=== PATIENT | female | born 1980 | race Asian ===

== ENCOUNTER 2020-06-11 10:31 | Outpatient (CLI) | payer OTHER, SELFPAY ==
--- NOTE | ~2020-06-11 | US_ITS ---
EXAMINATION: US pelvic complete w TV DATE: 06/11/2020 11:10 INDICATION: Pelvic pain TECHNIQUE: Multiple transabdominal and endovaginal sonographic images of the pelvis were obtained. COMPARISON: None. FINDINGS: The uterus measures 10.5 x 4.6 x 4.5 cm. A 1.9 x 1.6 x 1.7 cm isoechoic intramural fibroid is seen in the anterior uterine body. The endometrial complex measures 5 mm. The ovaries are not visu alized however no adnexal abnormality is seen. There is no free fluid in the pelvis. IMPRESSION: 1. No sonographic correlate for the patient's symptoms. Reviewed, dictated and finalized at location A.
== END 2020-06-11 10:32 | disposition home or self-care (01) ==
PROVIDERS: Visit Provider Obstetrics & Gynecology
DX: R10.2 Pelvic and perineal pain (principal)
CPT/HCPCS: 76830; 76856

== ENCOUNTER 2020-06-27 07:50 | Outpatient (CLI) | payer OTHER, SELFPAY ==
--- NOTE | ~2020-06-27 | MM_ITS ---
EXAMINATION: MM screening [place] BI w [facility] HISTORY: Screening mammogram TECHNIQUE: Craniocaudal and mediolateral oblique 3-D tomosynthesis images were obtained and synthetic 2-D images were generated. CAD analysis was submitted and interpreted. COMPARISON: No prior mammogram is available for comparison at this institution. BREAST PARENCHYMAL COMPOSITION: There are scattered areas of fibroglandular density. FINDINGS: There is no evidence of suspicious mass, calcification, or architectural distortion to sugg est malignancy in either breast. IMPRESSION: 1. No mammographic evidence of malignancy. 2. Recommend routine screening mammography in one year. BI-RADS Category 1: Negative Reviewed, dictated and finalized at location A.
== END 2020-06-27 07:51 | disposition home or self-care (01) ==
LOC: ANHIMG 07:52
PROVIDERS: PCP Family Medicine; Visit Provider Obstetrics & Gynecology
DX: Z12.31 Encounter for screening mammogram for malignant neoplasm of breast (principal)
CPT/HCPCS: 77063; 77067

== ENCOUNTER 2020-08-11 08:53 | Day surgery (SDC) | payer OTHER, SELFPAY ==
[2020-08-11] VITALS (10 sets, daily range): BP systolic 114–148; BP diastolic 66–91; PULSE 60–90; RESP 14–20; TEMP 36.1–36.9; O2SAT 96–100
--- NOTE | ~2020-08-11 | US_ITS ---
EXAMINATION: US abdomen limited DATE: 08/11/2020 12:02 INDICATION: Right upper quadrant pain TECHNIQUE: Multiple grayscale and Doppler ultrasound images of the abdomen were obtained. COMPARISON: None available FINDINGS: The head, body, and tail of the pancreas are normal. The liver is normal with normal echoge nicity and echotexture. No surface nodularity. Normal hepatopetal flow in the main portal vein. Stone s are present in the gallbladder. There is no definite bladder wall thickening or pericholecystic flu id. Stones are mobile and are demonstrated to migrate in and out of the gallbladder neck. The normal common bile duct measures 2 mm. There was no sonographic Solorzano sign. IMPRESSION: 1. Cholelithiasis with mobile stones migrating into and out of the gallbladder neck. No additional so nographic findings of cholecystitis. Reviewed, dictated and finalized at location A. MOFORMING MACHINE OPERATOR IMPRESSION: 1. Cholelithiasis with mobile stones migrating into and out of the gallbladder neck. No additional sonographic findings of cholecystitis.
--- NOTE | ~2020-08-11 | CT_ITS ---
EXAMINATION: CT abdomen pelvis w con INDICATION: Right upper quadrant pain TECHNIQUE: Computed tomographic images of the abdomen and pelvis were obtained after the administrati on of 100 cc of Omnipaque 350 intravenous contrast. The dose-length product (DLP) was 773.83 mGy-cm. Automated exposure control and iterative reconstruction technique were employed. COMPARISON: None available FINDINGS: The lung bases are clear. The heart size is normal. Stones are present in the gallbladder. There is no definite gallbladder wall thickening or pericholecystic fluid. The liver, spleen, pancrea s, and adrenal glands are normal. The kidneys are unremarkable. No pathologically enlarged abdominal or pelvic lymph nodes are identified. There is no free intraperitoneal gas or evidence of bowel obstr uction. The appendix is normal. IMPRESSION: 1. Cholelithiasis without definite additional findings of cholecystitis. Consider right upper quadran t ultrasound. Reviewed, dictated and finalized at location A. EF PHARMACIST IMPRESSION: 1. Cholelithiasis without definite additional findings of cholecystitis. Consid er right upper quadrant ultrasound.
[2020-08-11 09:19] LABS: Basophils Percent Auto 0.1 % (0.2-1.2); Eosinophils Absolute Auto 0.7 K/mm3 (0-0.3); Eosinophils Percent Auto 4.5 % (0-4.4); Hematocrit 44.9 % (37.0-47.0); Immature Granulocyte Absolute 0.06 K/mm3 (0.00-0.031); Immature Granulocyte Percent A 0.4 % (0-0.5); Lymphocytes Absolute Auto 1.94 K/mm3 (0.9-3.2); Lymphocytes Percent Auto 13.5 % (18.3-44.2); Mean Corpuscular HGB Conc 33.4 g/dl (32-36); Mean Corpuscular Hemoglobin 31.6 pg (26-34); Mean Corpuscular Volume 94.5 fl (80-100); Mean Platelet Volume 10.9 fl (7.4-10.4); Monocytes Absolute Auto 0.9 K/mm3 (0.1-0.6); Monocytes Percent Auto 5.9 % (2.6-8.5); Neutrophils Absolute Auto 10.9 K/mm3 (1.3-6.7); Neutrophils Percent Auto 75.6 % (45.5-73.1); Platelet Count Result 223 k/mm3 (150-375); Red Blood Count 4.75 M/mm3 (4.2-5.4); Red Cell Distribution Width 12.3 % (11.5-14.5); White Blood Count 14.4 K/mm3 (4.5-10.0)
[2020-08-11 09:25] LABS: Add Urine Microscopic? YES; Appearance Urine Cloudy (Clear); Bacteria Urine 1+ /hpf; Bilirubin Urine Negative (Negative); Blood Urine 3+ (Negative); Color Urine Yellow (Yellow); Glucose Urine UA Negative (Negative); Ketones Urine Trace mg/dL (Negative); Leukocyte Esterase Ur Negative LEU/UL (Negative); Mucus Urine Heavy /lpf; Nitrate Urine Positive (Negative); Protein Urine 2+ mg/dL (Negative); Squamous Epithelial Cell Urine Many /hpf (Few); Urobilinogen Urine Negative mg/dL (<2.0)
[2020-08-11 09:32] LABS: Alanine Aminotransferase 33 U/L (4-35); Alkaline Phosphatase 66 U/L (38-126); Anion Gap 14 mmol/L (8-16); Aspartate Amino Transferase 31 U/L (14-36); Bilirubin,Total 0.8 mg/dL (0.2-1.3); Blood Urea Nitrogen 14 mg/dL (7-17); Calcium 9.2 mg/dL (8.4-10.2); Carbon Dioxide 23 mmol/L (22-30); Chloride 103 mmol/L (98-107); Estimated Glomerular Filt Rate > 60; Glucose 103 mg/dL (65-105); Lipase 41 U/L (23-300); Potassium 3.9 mmol/L (3.4-5.0); Sodium 140 mmol/L (137-145)
--- NOTE | 2020-08-11 09:41 | ED.ABDPAIN ---
HPI - Abdominal Pain General Chief Complaint: Abdominal Pain Stated Complaint: really bad stomach pains last night Time Seen by Provider: 08/11/20 09:39 Source: patient Limitations: no limitations History of Present Illness HPI narrative: 39 years old female presents with right upper quadrant pain associated with nausea, vomiting and diarrhea started yesterday around noon. Patient denies any fever, chills, chest pain, shortness of breath, back pain, urinary symptoms. Patient also telling me that her symptoms are improving. Patient had intermittent right upper quadrant pain for years. History of hypertension and dysfunctional uterine bleeding. Patient does not smoke or drink or uses drugs. Related Data Allergies Allergy/AdvReac Type Severity Reaction Status Date / Time nifedipine Allergy Unknown Rash Verified 08/11/20 10:07 Review of Systems Review of Systems: Narrative: CONSTITUTIONAL: Denies fever, chills, or sweats. EYES: Denies visual changes, redness, or discharge. ENT: Denies rhinorrhea, congestion, sore throat, or otalgia. CARDIOVASCULAR: Denies chest pain, palpitations, or edema. RESPIRATORY: Denies cough or dyspnea. GASTROINTESTINAL: Right upper quadrant pain with nausea, vomiting and diarrhea GENITOURINARY: Denies dysuria or hematuria. SKIN: Denies rash or itching. MUSCULOSKELETAL: Denies back pain, joint pain, or myalgia. NEUROLOGIC: Denies headache, numbness, or weakness. PSYCHIATRIC: Denies anxiety or depression. PMFSH Past Medical History Medical History History of hypertension Surgical History Surgical History H/O laparoscopy Social History Social History Smoking status: Never smoker Gender identity (if verbalized by the patient): Female Exam Narrative: Exam Narrative: General appearance: Well-developed, well-nourished Skin: Normal color Head: Normocephalic, nontraumatic Eyes: Clear conjunctiva ENT: Oropharynx normal, ears normal, nose normal Neck: Supple, nontender Chest and respiratory: Airway patent, no respiratory distress, no accessory muscle use Heart: Regular rate/rhythm Abdomen: Soft, nontender, no organomegaly, quiet bowel sounds Vascular: Normal peripheral pulses, normal capillary refill. Musculoskeletal: Normal range of motion, nontender back Neurologic: Alert and oriented ?3, CRANE ENGINEER is normal as tested, no gross motor deficit Course Course Emergency Course: Improving Consultations Consultation #1: Dr. Bustamante Gallbladder need to be removed. Patient can be admitted today or follow-up as outpatient. Patient agreed to stay for cholecystectomy Date: 08/11/20 Time: 12:31 Vital Signs Vital signs: Vital Signs Temperature 36.1 C L 08/11/20 09:29 Pulse Rate 82 08/11/20 09:29 Respiratory Rate 18 08/11/20 09:29 Blood Pressure 148/91 H 08/11/20 09:29 Pulse Oximetry 96 08/11/20 09:29 Temperature 36.1 C L 08/11/20 09:29 Pulse Rate 82 08/11/20 09:29 Respiratory Rate 18 08/11/20 09:29 Blood Pressure 148/91 H 08/11/20 09:29 Pulse Oximetry 96 08/11/20 09:29 MDM - Abdominal Pain MDM Narrative Medical decision making narrative: Patient presents with right upper quadrant pain which been going for years. Cholelithiasis, cholecystitis are my concern. Labs, urine analysis, CT abdomen pelvis with IV contrast, IV fluids, IV morphine and Zofran ordered. Blood work-up showed normal liver enzymes, normal bilirubin. CT scan of the abdomen and pelvis showed no significant finding of emboli cholecystitis Gallbladder ultrasound showed a g
[2020-08-11] MEDS: ONDANSETRON INJ 4 MG/2 ML VIAL IV PUSH (10:06)
[2020-08-11] MEDS: SODIUM CHLORIDE 0.9% IV 1,000 ML 999 ML IV CONT (10:06)
--- NOTE | 2020-08-11 12:58 | WPDANESEPPF ---
Anes - Initial Pre Proc Eval Procedure: Operation Date: 08/11/20 13:45 Proposed Procedures p Laparoscopic Cholecystectomy, Possible Open - Isrrael Vogt DO Date/Time: 08/11/20 12:58 Pre Op Diagnosis: really bad stomach pains last night Patient Data Age: 39 Gender: F Height: 1.57 m Weight: 84 kg Last Vital Signs Temp 36.1 C L 08/11/20 09:29 Pulse 82 08/11/20 09:29 Resp 18 08/11/20 09:29 BP 148/91 H 08/11/20 09:29 Pulse Ox 96 08/11/20 09:29 Allergies Allergy/AdvReac Type Severity Reaction Status Date / Time nifedipine Allergy Unknown Rash Verified 08/11/20 10:07 Home Medications Medication Instructions Recorded Confirmed Type cyclobenzaprine 10 mg PO TID PRN #14 tablet 10/04/19 Rx lisinopril [Zestril] 20 mg PO DAILY 08/11/20 08/11/20 History norethindrone acetate [Aygestin] 5 mg PO DAILY 08/11/20 08/11/20 History Laboratory Tests 08/11/20 08/11/20 08/11/20 09:11 09:11 09:11 WBC 14.4 K/mm3 H K/mm3 (4.5-10.0) RBC 4.75 M/mm3 M/mm3 (4.2-5.4) Hgb 15.0 g/dL g/dL (12.0-15.0) Hct 44.9 % % (37.0-47.0) MCV 94.5 fl fl (80-100) MCH 31.6 pg pg (26-34) MCHC 33.4 g/dl g/dl (32-36) RDW 12.3 % % (11.5-14.5) Plt Count 223 k/mm3 k/mm3 (150-375) MPV 10.9 fl H fl (7.4-10.4) Immature Gran % (Auto) 0.4 % % (0-0.5) Neut % (Auto) 75.6 % H % (45.5-73.1) Lymph % (Auto) 13.5 % L % (18.3-44.2) [place] % (Auto) 5.9 % % (2.6-8.5) Eos % (Auto) 4.5 % H % (0-4.4) Baso % (Auto) 0.1 % L % (0.2-1.2) Lymph # (Auto) 1.94 K/mm3 K/mm3 (0.9-3.2) [place] # (Auto) 0.9 K/mm3 H K/mm3 (0.1-0.6) Eos # (Auto) 0.7 K/mm3 H K/mm3 (0-0.3) Baso # (Auto) 0.0 K/mm3 K/mm3 (0.0-0.1) Abs Immat Gran (auto) 0.06 K/mm3 H K/mm3 (0.00-0.031) Absolute Neuts (auto) 10.9 K/mm3 H K/mm3 (1.3-6.7) Absolute Nucleated RBC 0.0 K/mm3 K/mm3 (0.0-0.012) Nucleated RBC % 0.0 % % (0.0-0.2) Sodium 140 mmol/L mmol/L (137-145) Potassium 3.9 mmol/L mmol/L (3.4-5.0) Chloride 103 mmol/L mmol/L (98-107) Carbon Dioxide 23 mmol/L mmol/L (22-30) Anion Gap 14 mmol/L mmol/L (8-16) BUN 14 mg/dL mg/dL (7-17) Creatinine 0.80 mg/dL mg/dL (0.7-1.0) Estim Creat Clear Calc Not Reportable Estimated GFR > 60 (59 - ) Glucose 103 mg/dL mg/dL (65-105) Calcium 9.2 mg/dL mg/dL (8.4-10.2) Total Bilirubin 0.8 mg/dL mg/dL (0.2-1.3) AST 31 U/L U/L (14-36) ALT 33 U/L U/L (4-35) Alkaline Phosphatase 66 U/L U/L (38-126) Total Protein 9.0 g/dL H g/dL (6.3-8.2) Albumin 5.0 g/dL g/dL (3.5-5.1) Lipase 41 U/L U/L (23-300) Urine Color Yellow (Yellow) Urine Appearance Cloudy H (Clear) Urine pH 5.0 (5.0-9.0) Ur Specific [place] 1.030 (1.001-1.035) Urine Protein 2+ mg/dL H mg/dL (Negative) Urine Glucose (UA) Negative mg/dL mg/dL (Negative) Urine Ketones Trace mg/dL mg/dL (Negative) Ur Blood (Man) 3+ H (Negative) Urine Nitrate Positive H (Negative) Urine Bilirubin Negative (Negative) Urine Urobilinogen Negative mg/dL mg/dL (<2.0) Leukocyte Esterase Rfl Negative EDDIE/UL EDDIE/UL (Negative) Urine RBC 3-5 /hpf H /hpf (0-2) Urine WBC 10-15 /hpf H /hpf Ur Squamous Epith Cells Many /hpf H /hpf (Few) Urine Bacteria 1+ /hpf H /hpf Hyaline Casts 10-14 /lpf H /lpf (None) Urine Mucus Heavy /lpf H /lpf Patient hx anesthesia problems: none Family hx anesthesia problems: none PMFSH Past Medical History
[2020-08-11] MEDS: LACTATED RINGERS 1,000 ML 30 ML IV CONT ×2 (13:15→15:11)
--- NOTE | 2020-08-11 13:22 | PC.NURSE ---
Surgeon in room discussing case with pt. Report called to Preop and PreOp notified that Zosyn was not started in ED.
--- NOTE | 2020-08-11 13:45 | PM.IMHP ---
H&P: HPI History of Present Illness Date/Time: 08/11/20 13:45 Chief complaint: really bad stomach pains last night Narrative: Bentley Middleton is a 39 year old female who presented to the ED today with RUQ pain, nausea, vomiting, and diarrhea. She had symptoms begin yesterday and also had symptoms similar to this 1 week ago after eating too much greasy food. She denies fevers, chills, other ill contacts. Review of Systems Review of Systems: All systems reviewed & are unremarkable except as noted in HPI and below Constitutional: Constitutional: Denies chills and Denies fever(s) Eyes: Eyes: Denies change in vision ENT: Denies hearing loss, Denies neck pain and Denies sore throat Cardiovascular: Cardiovascular: Denies chest pain and Denies dyspnea Respiratory: Respiratory: Denies cough, Denies dyspnea and Denies wheezing Gastrointestinal: Gastrointestinal: Reports as per HPI Genitourinary: Genitourinary: Denies hematuria and Denies dysuria Musculoskeletal: Musculoskeletal: Denies arthralgias, Denies joint swelling and Denies neck pain Allergic/Immunologic: Allergic/Immunologic: Denies wheezing PMFSH Past Medical History Medical History History of hypertension Surgical History Surgical History H/O laparoscopy Family History Family History (Updated 08/11/20 @ 13:48 by Isrrael Vogt DO) Father Heart disease Mother Thyroid cancer Social History Social History Smoking status: Never smoker Gender identity (if verbalized by the patient): Female Meds Home Medications and Allergies Home Medications Medication Instructions Recorded Confirmed Type cyclobenzaprine 10 mg PO TID PRN #14 tablet 10/04/19 Rx lisinopril [Zestril] 20 mg PO DAILY 08/11/20 08/11/20 History norethindrone acetate [Aygestin] 5 mg PO DAILY 08/11/20 08/11/20 History Allergies Allergy/AdvReac Type Severity Reaction Status Date / Time nifedipine Allergy Unknown Rash Verified 08/11/20 10:07 Vital Signs Vital Signs - 24 hr 08/11/20 09:29 08/11/20 13:08 08/11/20 13:43 Temperature 36.1 C L 36.7 C 36.9 C Pulse Rate 82 80 63 Respiratory Rate 18 18 20 Blood Pressure 148/91 H 128/80 120/67 Pulse Oximetry 96 99 100 Exam Const: General: alert; No acute distress Orientation/consciousness: patient oriented x3 Limitations: no limitations HENMT: Head: normocephalic and atraumatic Ears: hearing grossly normal bilaterally General nose exam: Normal external nose present and Normal nares present Mouth: Yes Normal oral and palatal mucosa present and Yes moist mucous membranes Eyes: General: appearance normal, both eyes and all related structures Conjunctivae: conjunctivae normal Sclera: sclerae normal Pupils: Equal, round and reactive pupils present EOM: EOMs intact bilaterally Neck: Neck: normal visual inspection, full ROM, no lymphadenopathy, supple and no JVD Lymphatic: no lymphadenopathy noted Chest: Chest palpation & inspection: normal inspection of the chest Resp: Effort & Inspection: normal respiratory effort and able to speak in complete sentences Auscultation: clear to auscultation bilaterally Percussion: percussion normal Cardio: Jugular venous distension: no JVD Rate: regular rate Rhythm: regular rhythm Heart sounds: S1 normal heart sound present and S2 normal heart sound present Peripheral pulses: Peripheral pulses 2+ throughout GI: Inspection: normal to inspection GI Palp: Yes Soft to palpation, Yes Tenderness to palpation present (GI) (RUQ), No Guarding due to palpation present (GI), No Hernia present and No Rebound tenderness present Percussion: Yes normal to percussion Auscultation: normal bowel sounds : General: Yes no CVA tenderness Back/Spine/Pelvis: Back: no CVA tenderness Skin: General skin exam: no
--- NOTE | 2020-08-11 13:51 | WPDHPUPDATE1 ---
History and Physical Update Update Date/Time: 08/11/20 13:51 History and Physical has been reviewed, including an updated exam of the patient. There are NO changes in the patient's condition. Risks, benefits, and alternatives have been discussed and questions answered. Patient agrees to proceed with procedure.
[2020-08-11] MEDS: BUPIVACAINE/EPINEPHRINE 0.5% 10 ML VIAL INFILTRATE (14:06)
--- NOTE | 2020-08-11 15:11 | PM.PROC ---
Procedure Note - Detailed Date of procedure: 08/11/20 Pre-op diagnosis: Symptomatic cholelithiasis Post-op diagnosis: same Procedure performed: Laparoscopic Cholecystectomy Description of procedure: Procedure as well as risks, benefits, and alternatives were discussed with patient. Written consent was obtained and placed in chart prior to procedure. The patient was brought back to surgical suite. Patient was placed in supine position on operating table. Time-out was done to confirm patient and procedure. Patient was then intubated by the anesthesia department. Abdomen was prepped and draped in sterile fashion using chlorhexidine prep. 0.5% bupivacaine with epinephrine was infiltrated at each site of incision. A 5 millimeter incision was made near the umbilicus, and a 5 millimeter Optiview trocar was advanced through the abdominal layers under direct visualization. Once inside the abdominal cavity, carbon dioxide was insufflated to create a pneumoperitoneum. The camera was inserted and the abdomen was inspected. No immediate abnormalities were identified. The patient was placed in reverse Trendelenburg position and rotated slightly to the left. An 11 millimeter incision was made in the subxiphoid region, and an 11 millimeter trocar was inserted under direct visualization. Two 5 millimeter incisions were made in the right upper quadrant, and two 5 millimeter trocars were inserted under direct visualization. The gallbladder was identified and grasped at the fundus and retracted superiorly. It was then grasped at the infundibulum retracted laterally. Careful dissection around the neck of the gallbladder was performed using blunt dissection with a [place] grasper and hook electrocautery. The cystic duct was identified, and a window was created behind it. The cystic artery was also identified and a window was created behind it. The critical view of safety was identified, visualizing the cystic duct running directly into the neck of the gallbladder, and the cystic artery running directly into the wall of the gallbladder. A 5 millimeter clip console attendant was then used to place 2 clips proximally and 1 clip distally on both the cystic duct and cystic artery. They were then both transected using endoscopic scissors. Once safely away from the kike hepatitis, the gallbladder was dissected free from the liver bed using hook electrocautery. Hemostasis was achieved along the way. The gallbladder was removed completely and then removed through the subxiphoid port. The liver bed was then inspected. Hemostasis appeared adequate, and our clips appeared secure. The area was gently irrigated with sterile saline. No other abnormalities were seen. The patient was flattened out in bed, and 1 final inspection was made around the abdominal cavity. The subxiphoid port was removed, and a Adalid Joan cone was used to approximate the fascia with an 0-Vicryl simple interrupted suture. The remaining ports were then removed under direct visualization, the camera was removed, and the pneumoperitoneum was released. The skin of the incisions was approximated using 4-0 Monocryl subcuticular sutures. Exofin glue was applied on top. The patient was then awakened from anesthesia, extubated, and transferred to recovery. Anesthesia: GETA and local (0.5% bupivicaine with epi) Surgeon: Isrrael Vogt DO Estimated blood loss (mL): 5 Drains: No Packing: No Pathology: yes Complications: No immediate complications Condition: stable (Patient tolerated procedure well, and is currently resting comfortably in recovery.) Disposition: same day Findings: This is a 39-year-old woman who presented to the [facility] Emergency Department this morning with complaints of right upper quadrant pain, nausea, vomiting, and diarrhea. She has had a couple episodes like this in the past but none this severe. Pain was persisting throughout the entire night. She started to feel a little better whi
[2020-08-11] MEDS: fentaNYL CITRATE INJ (*CRX) 100 MCG/2 ML VIAL 25 MCG IV PUSH ×6 (15:30→16:54)
[2020-08-11] MEDS: oxyCODONE HCL (*CRX) 5 MG TAB IR PO (16:57)
== END 2020-08-11 17:38 | disposition home or self-care (01) ==
LOC: ANHED 12:56 → ANHSURGERY 13:09
PROVIDERS: Emergency Provider Emergency Medicine; PCP Family Medicine; Visit Provider Surgery
PROC: 0FT44ZZ Resection of Gallbladder, Percutaneous Endoscopic Approach (ICD-10-PCS; CPT 47562; principal; 2020-08-11 13:45)
DX: K80.10 Calculus of gallbladder with chronic cholecystitis without obstruction (principal); N39.0 Urinary tract infection, site not specified; E66.9 Obesity, unspecified; Z68.33 Body mass index [BMI] 33.0-33.9, adult
CPT/HCPCS: 47562; 36415; 74177; 76705; 80053; 81001; 81025; 83690; 85025; 87077; 87086; 87088; 87186; 88304; 96361; 96374; 99285; A9270; J0330; J1100; J2250; J2405; J2543; J2704; J2710; J3010; J7030; J7120; Q9967

== ENCOUNTER 2021-06-18 10:06 | Outpatient (CLI) | payer OTHER, SELFPAY ==
--- NOTE | ~2021-06-18 | MM_ITS ---
EXAMINATION: MM screening [place] BI w [facility]alo HISTORY: Screening mammogram TECHNIQUE: Craniocaudal and mediolateral oblique 3-D tomosynthesis images were obtained and synthetic 2-D images were generated. CAD analysis was submitted and interpreted. COMPARISON: 06/27/2020 bilateral digital screening mammogram BREAST PARENCHYMAL COMPOSITION: There are scattered areas of fibroglandular density. FINDINGS: There is no evidence of suspicious mass, calcification, or architectural distortion to sugg est malignancy in either breast. There has been no suspicious interval change. IMPRESSION: 1. No mammographic evidence of malignancy. 2. Recommend routine screening mammography in one year. BI-RADS Category 1: Negative Reviewed, dictated and finalized at location A.
== END 2021-06-18 10:07 | disposition home or self-care (01) ==
PROVIDERS: PCP Family Medicine; Visit Provider Obstetrics & Gynecology
DX: Z12.31 Encounter for screening mammogram for malignant neoplasm of breast (principal)
CPT/HCPCS: 77063; 77067

== ENCOUNTER 2021-08-13 08:18 | Outpatient (CLI) | payer OTHER, SELFPAY ==
--- NOTE | 2021-08-13 08:21 | ECG_ITS ---
Measurements Intervals Lequire Rate: 64 P: 16 ID: 145 QRS: 5 QRSD: 94 T: 17 QT: 378 QTc: 391 Interpretive Statements SINUS RHYTHM INCOMPLETE RIGHT BUNDLE BRANCH BLOCK BORDERLINE R WAVE PROGRESSION, ANTERIOR LEADS BASELINE ARTIFACT- I, II, III, AVR, AVL, AVF BORDERLINE ECG Electronically Signed On 08-13-2021 9:10:27 CDT by Eliazar Childress D.O.
[2021-08-13 08:38] LABS: Basophils Percent Auto 0.4 % (0.2-1.2); Eosinophils Absolute Auto 0.1 K/mm3 (0-0.3); Eosinophils Percent Auto 1.8 % (0-4.4); Hematocrit 46.6 % (37.0-47.0); Hemoglobin 15.3 g/dL (12.0-15.0); Immature Granulocyte Absolute 0.07 K/mm3 (0.00-0.031); Immature Granulocyte Percent A 0.9 % (0-0.5); Lymphocytes Absolute Auto 1.76 K/mm3 (0.9-3.2); Lymphocytes Percent Auto 22.3 % (18.3-44.2); Mean Corpuscular HGB Conc 32.8 g/dl (32-36); Mean Corpuscular Hemoglobin 31.5 pg (26-34); Mean Corpuscular Volume 96.1 fl (80-100); Monocytes Absolute Auto 0.5 K/mm3 (0.1-0.6); Monocytes Percent Auto 5.8 % (2.6-8.5); Neutrophils Absolute Auto 5.4 K/mm3 (1.3-6.7); Neutrophils Percent Auto 68.8 % (45.5-73.1); Platelet Count Result 185 k/mm3 (150-375); Red Blood Count 4.85 M/mm3 (4.2-5.4); Red Cell Distribution Width 12.4 % (11.5-14.5); White Blood Count 7.9 K/mm3 (4.5-10.0)
== END 2021-08-13 08:19 | disposition home or self-care (01) ==
LOC: ANHSURGERY 08:20
PROVIDERS: PCP Family Medicine; Visit Provider Obstetrics & Gynecology
DX: D21.9 Benign neoplasm of connective and other soft tissue, unspecified (principal); Z86.79 Personal history of other diseases of the circulatory system; Z01.818 Encounter for other preprocedural examination; I45.10 Unspecified right bundle-branch block
CPT/HCPCS: 36415; 85025; 86850; 86900; 86901; 93005

== ENCOUNTER 2021-08-14 02:57 | Day surgery (SDC) | payer OTHER, SELFPAY ==
[2021-08-06 10:09] VITALS: BMI 33.8
--- NOTE | 2021-08-11 14:16 | PM.IMHP ---
H&P: HPI History of Present Illness Date/Time: 08/11/21 14:16 40-year-old 2 para 2 admitted for robotic total vaginal hysterectomy and bilateral salpingectomy secondary to enlarged fibroid uterus with heavy vaginal bleeding. Patient has long history of pelvic pain discomfort and there are at least 7 uterine fibroids in the uterus. She opted for hysterectomy. Risks and benefits reviewed including but exclusive of , aspiration pneumonia, bleeding, transfusion, perforation injury to bowel, bladder, ureters, or other internal organs with need for open laparotomy. She received the ACOG handout entitled hysterectomy as well as advance she handout. She had all questions answered. She asked to proceed Chief Complaint: Symptomatic uterine fibroids Review of Systems Review of Systems: All systems reviewed & are unremarkable except as noted in HPI and below PMFSH Past Medical History Medical History History of hypertension Surgical History Surgical History H/O laparoscopy Hx laparoscopic cholecystectomy 08/11/20 Family History Family History Father Heart disease Mother Thyroid cancer Social History Social History Smoking status: Never smoker Alcohol intake: never Substance use: never Substance use type: does not use Gender identity (if verbalized by the patient): Female Spiritual care concerns: No Meds Home Medications and Allergies Home Medications Medication Instructions Recorded Confirmed Type lisinopril [Zestril] 20 mg PO DAILY 08/11/20 08/06/21 History norethindrone acetate [Aygestin] 5 mg PO BID 08/11/20 08/06/21 History ascorbic acid (vitamin C) [Vitamin 500 mg PO DAILY 08/06/21 08/06/21 History C] cetirizine [Zyrtec] 10 mg PO DAILY 08/06/21 08/06/21 History glucosamine sulfate 2KCl 1,000 mg PO DAILY 08/06/21 08/06/21 History multivitamin [One A Day Vitamin] 1 tablet PO DAILY 08/06/21 08/06/21 History omalizumab [Xolair] 150 mg SUBCUT MONTHLY 08/06/21 08/06/21 History Allergies Allergy/AdvReac Type Severity Reaction Status Date / Time nifedipine Allergy Unknown Rash Verified 08/06/21 10:04 Exam Const: General: no acute distress Eyes: General: appearance normal, both eyes and all related structures Neck: Neck: supple and no JVD Thyroid: thyroid normal Resp: Effort & Inspection: normal respiratory effort Auscultation: clear to auscultation bilaterally Cardio: Rate: regular rate Rhythm: regular rhythm GI: Inspection: non-distended GI Palp: Yes Soft to palpation, No Tenderness to palpation present (GI) and No Guarding due to palpation present (GI) Auscultation: normal bowel sounds : External Female Exam: normal external appearance Speculum Exam - Vagina: normal appearance of the vagina Speculum Exam - Cervix: normal appearance of the cervix Bimanual exam- vagina & uterus: enlarged Bimanual Exam- Adnexa, other: normal adnexae Skin: General skin exam: no rashes or lesions noted Extrem: General: normal to inspection and no edema Psych: Mental Status: mental status grossly normal Affect: normal affect Assessment and Plan Additional Plan Impression: Symptomatic uterine fibroids Plan robotic total vaginal hysterectomy bilateral salpingectomies
[2021-08-14] VITALS (12 sets, daily range): BP systolic 115–146; BP diastolic 64–88; PULSE 54–72; RESP 11–19; TEMP 36.1–36.8; O2SAT 97–100; BMI 33.8
--- NOTE | 2021-08-14 06:54 | WPDHPUPDATE1 ---
History and Physical Update Update Date/Time: 08/14/21 06:54 History and Physical has been reviewed, including an updated exam of the patient. There are NO changes in the patient's condition. Risks, benefits, and alternatives have been discussed and questions answered. Patient agrees to proceed with procedure.
--- NOTE | 2021-08-14 06:59 | P.PNAN_ITS ---
Anes - Initial Pre Proc Eval Procedure: Operation Date: 08/14/21 07:30 Proposed Procedures p Robotic Assisted Total Hysterectomy with Bilateral Salpingectomy - Anival Zhong MD Date/Time: 08/14/21 06:59 Surgeon: Anival Zhong MD Pre Op Diagnosis: fibroids , heavy bleeding Patient Data Age: 40 Gender: F Height: 1.57 m Weight: 83.9 kg Allergies Allergy/AdvReac Type Severity Reaction Status Date / Time nifedipine Allergy Unknown Rash Verified 08/06/21 10:04 Home Medications Medication Instructions Recorded Confirmed Type lisinopril [Zestril] 20 mg PO DAILY 08/11/20 08/06/21 History norethindrone acetate [Aygestin] 5 mg PO BID 08/11/20 08/06/21 History ascorbic acid (vitamin C) [Vitamin 500 mg PO DAILY 08/06/21 08/06/21 History C] cetirizine [Zyrtec] 10 mg PO DAILY 08/06/21 08/06/21 History glucosamine sulfate 2KCl 1,000 mg PO DAILY 08/06/21 08/06/21 History multivitamin [One A Day Vitamin] 1 tablet PO DAILY 08/06/21 08/06/21 History omalizumab [Xolair] 150 mg SUBCUT MONTHLY 08/06/21 08/06/21 History hydrocodone-acetaminophen 1 tablet PO Q4H PRN #30 tablet 08/14/21 Rx Patient hx anesthesia problems: none Family hx anesthesia problems: none Results Review: All pre-operative results and documents have been reviewed as part of the pre-operative evaluation. [facility] Past Medical History Medical History History of hypertension Surgical History Surgical History H/O laparoscopy Hx laparoscopic cholecystectomy 08/11/20 Family History Family History Father Heart disease Mother Thyroid cancer Social History Social History Smoking status: Never smoker Alcohol intake: never Substance use: never Substance use type: does not use Living arrangements: with family Gender identity (if verbalized by the patient): Female Spiritual care concerns: No Anes - Eval Final PreProcedure Day of Procedure 08/14/21 06:59 Patient weight: obese Heart: regular rate and rhythm Lungs: clear to auscultation Airway: Mallampati scale class II Neurological: alert and oriented Last oral intake: >/= 8 hours ASA classification: II Emergent: no Anesthetic plan: proceed Anesthesia type and monitoring: general ETT and standard monitoring Results Review: All pre-operative results and documents have been reviewed as part of the pre-operative evaluation. Informed Consent: The patient's anesthetic plan and its attendant risks and benefits were discussed with the patient/family/POA. Questions were solicited and answers provided to the satisfaction of the patient/family/POA.
[2021-08-14] MEDS: ACETAMINOPHEN 500 MG TABLET 1000 MG PO (07:15)
[2021-08-14] MEDS: LACTATED RINGERS 1,000 ML 30 ML IV CONT (07:15)
[2021-08-14] MEDS: KETOROLAC 15 MG/ML VIAL (*BKC) IV PUSH (07:15)
[2021-08-14] MEDS: ceFAZolin 2 GM/D5W 50 ML 2 GM/50 ML BAG IVPB (07:27)
--- NOTE | 2021-08-14 08:31 | W.PM.PROC2 ---
Procedure Note - Detailed Date of Procedure 08/14/21 Pre-op Diagnosis fibroids , heavy bleeding Post-op Diagnosis same Procedure Performed Robotic total vaginal hysterectomy and bilateral salpingectomy Surgeon Anival Zhong MD Anesthesia general Indications This is a 40-year-old female with a symptomatic uterine fibroid uterus Findings Enlarged uterus. Normal-appearing tubes and ovaries. The cervix was very irregular. The vagina was week in its nature and was oversewn Description of Procedure The patient was prepped draped in the normal sterile fashion placed in the dorsal lithotomy position. Excellent general endotracheal anesthesia weighted speculum placed in posterior fornix vagina anterior lip of the cervix grasped with single-tooth tenaculum the uterus sounded to 10cm. Serial dilatation with fragmented dilators performed followed passage of 8 MORRO and 2.5 cold cup. A 16 Pashto catheter was placed and bladder draining clear urine. The remainder the instruments removed. The gloves were changed A supraumbilical incision made the Veress needle passed in the abdomen. Abdomen filled with CO2 gas [id number]. The 8mm trocar advanced in the abdomen and the downside visualized. No injury seen patient was placed in Trendelenburg and right left lateral quadrant incisions made. 8mm trocars were advanced through these and direct visualization assuring no injury. A right upper quadrant incision made and the 8mm trocar advanced under direct visualization assuring no injury there. Enlarged fibroid uterus was seen was very irregular and vascular. The robot was docked. Attention was turned to the financial health counselor. The left round ligament was found. This was clamped, burned, cut. Anterior bladder flap was formed by sharply dissecting the bladder away from the to the caudal direction to the opposite round ligament which was clamped, burned, cut. Next the left fallopian tube was removed by sharply dissecting this and leaving it attached to the uterine origin. This was repeated on the contralateral side remove the right tube the ovaries were left alone. Posteriorly the colon was markedly adherent to the posterior wall the cervix and uterus. By sharp dissection layer by layer of this were loosened and the root retracted awake posteriorly away from the uterine cervix. The left cardinal and broad ligaments were then serially skeletonized. These were clamped, burned, cut and brought down the lateral edge of the cervix. The uterine vessels were large and tortuous in each was individually clamped, burned, cut. This was repeated on the contralateral side by grasping burning and cutting the cardinal and broad ligaments on the right, hugging the uterus and cervix until the uterine vessels were seen on the right. These vessels were large and tortuous as well and individually clamped, burned, cut. At that point good blanching of the uterus was seen and a colpotomy incision was made. The cervix uterus tubes removed through the vagina. Posteriorly the vagina was stand made of poor tissue. Vagina was closed with continuous running V from edge to lateral edge back to midline carefully tacking the the vagina posteriorly avoiding injury to colon. Hemostasis was assured irrigation undertaken until clear. [place] term was then placed over the raw surface area and hemostasis was assured. The robot was undocked and the gas removed from the abdomen. The incisions closed with 4-0 Monocryl glue. Patient was awakened went to recovery in satisfactory condition. All sponge, needle, instrument counts were correct. There were no immediate complications Estimated Blood Loss 25 Drains No Packing No Pathology yes Complications No immediate complications Condition stable Disposition PACU
[2021-08-14] MEDS: fentaNYL CITRATE INJ (*CRX) 100 MCG/2 ML VIAL 25 MCG IV PUSH (09:21)
--- NOTE | 2021-08-14 10:07 | PC.NURSE ---
This patient, Bentley Middleton, was received from [PACU per bed to room 288] on 08/14/21 at 1100. Patient/family oriented to unit policies and routines
[2021-08-14] MEDS: DEXTROSE 5%/LACTATED RINGERS 1,000 ML 125 ML IV CONT (10:18)
[2021-08-14] MEDS: KETOROLAC 30 MG/ML VIAL (*BKC) IV PUSH (11:43)
[2021-08-14] MEDS: HYDROcodone/acetaminophen (*CRX) 10-325 MG TABLET 1 TAB PO (17:59)
[2021-08-14] MEDS: DOCUSATE SODIUM 100 MG CAPSULE PO (17:59)
[2021-08-14] MEDS: IBUPROFEN 600 MG TABLET PO (23:34)
[2021-08-15 04:40] VITALS: BP 134/76; PULSE 76; RESP 18; TEMP 37.1; O2SAT 99
[2021-08-15] MEDS: HYDROcodone/acetaminophen (*CRX) 5-325 MG TABLET 1 TAB PO (04:46)
[2021-08-15 04:51] LABS: Basophils Percent Auto 0.2 % (0.2-1.2); Eosinophils Percent Auto 0.2 % (0-4.4); Hemoglobin 11.9 g/dL (12.0-15.0); Immature Granulocyte Absolute 0.05 K/mm3 (0.00-0.031); Immature Granulocyte Percent A 0.4 % (0-0.5); Lymphocytes Absolute Auto 1.51 K/mm3 (0.9-3.2); Lymphocytes Percent Auto 13.4 % (18.3-44.2); Mean Corpuscular Hemoglobin 31.9 pg (26-34); Mean Corpuscular Volume 93.8 fl (80-100); Mean Platelet Volume 11.3 fl (7.4-10.4); Monocytes Absolute Auto 0.8 K/mm3 (0.1-0.6); Monocytes Percent Auto 7.3 % (2.6-8.5); Neutrophils Absolute Auto 8.8 K/mm3 (1.3-6.7); Neutrophils Percent Auto 78.5 % (45.5-73.1); Platelet Count Result 165 k/mm3 (150-375); Red Blood Count 3.73 M/mm3 (4.2-5.4); Red Cell Distribution Width 12.2 % (11.5-14.5); White Blood Count 11.3 K/mm3 (4.5-10.0)
[2021-08-15 07:00] VITALS: BP 124/79; PULSE 98; RESP 18; TEMP 36.6; O2SAT 98
--- NOTE | 2021-08-15 07:42 | PM.GYNPNOP ---
DOOR CUTTER - A/P Postoperative Procedures: Procedures Operation Date: 08/14/21 07:30 Actual Procedure Side Surgeon p Robotic Assisted Total Hysterectomy with Bilateral Salpingectomy Bilateral Anival Zhong MD A: POD#1, doing well. P: Home to f/u 2 weeks. Time Spent With Patient Time with patient: less than 15 minutes DOOR CUTTER- PN:Subj Post-Op Subjective Date/time seen: 08/15/21 07:42 Interval history: Pain OK. Tolerating diet. Voiding. Would like to go home. Exam Narrative: AVSS I/O OK ABD soft, nontender. Incisions c/d/i. EXT nontender DOOR CUTTER - PN: Obj Data Vital Signs Vital Signs: Vital Signs - 24 hr 08/14/21 08:47 08/14/21 08:55 08/14/21 09:00 Temperature 36.5 C Pulse Rate 68 63 66 Respiratory Rate 11 L 16 18 Blood Pressure 115/67 131/78 128/81 Pulse Oximetry 100 100 100 08/14/21 09:15 08/14/21 09:30 08/14/21 09:45 Temperature Pulse Rate 61 60 55 L Respiratory Rate 18 13 16 Blood Pressure 132/75 134/80 146/79 H Pulse Oximetry 100 99 97 08/14/21 09:57 08/14/21 10:15 08/14/21 14:45 Temperature 36.1 C L 36.7 C Pulse Rate 54 L 62 68 Respiratory Rate 19 16 18 Blood Pressure 134/72 129/72 133/73 Pulse Oximetry 99 99 100 08/14/21 20:00 08/14/21 23:30 08/15/21 04:40 Temperature 36.8 C 36.8 C 37.1 C Pulse Rate 67 64 76 Respiratory Rate 18 18 18 Blood Pressure 128/82 117/64 134/76 Pulse Oximetry 100 99 99 Intake/Output Intake/Output: Intake & Output 08/12/21 08/13/21 08/14/21 08/15/21 23:59 23:59 23:59 23:59 Intake Total 1650 200 Output Total 1250 300 Balance 400 -100 Meds/Results Medications: Active Medications Generic Name Dose Route Start Last Admin Trade Name Freq PRN Reason Stop Dose Admin Hydrocodone Bitart/Acetaminophen 1 tab 08/14/21 10:00 08/15/21 04:46 Hydrocodone/Acetaminophen (*Crx) 5-325 Mg Tablet PO 1 tab Q3H PRN Administration Pain Rated 5 or Less Hydrocodone Bitart/Acetaminophen 1 tab 08/14/21 10:00 08/14/21 17:59 Hydrocodone/Acetaminophen (*Crx) 10-325 Mg Tablet PO 1 tab Q3H PRN Administration Pain Rated 6 or Greater Docusate Sodium 100 mg 08/14/21 10:00 08/14/21 17:59 Docusate Sodium 100 Mg Capsule PO 100 mg BID MACY Administration Enoxaparin Sodium 40 mg 08/14/21 10:00 08/14/21 10:24 Enoxaparin 40 Mg/0.4 Ml Syringe SUB-Q Not Given DAILY MACY Dextrose/Lactated Ringer's 1,000 mls @ 125 mls/hr 08/14/21 10:00 08/14/21 10:18 Dextrose 5%/Lactated Ringers IV CONT 125 mls/hr .Q8H MACY Administration Ibuprofen 600 mg 08/14/21 10:00 08/14/21 23:34 Ibuprofen 600 Mg Tablet PO 600 mg Q6H PRN Administration Cramping Ketorolac Tromethamine 30 mg 08/14/21 10:00 08/14/21 11:43 Ketorolac 30 Mg/Ml Vial (*Bkc) IV PUSH 08/19/21 09:59 30 mg Q6H PRN Administration Pain Rated 4-6 Naloxone HCl 0.1 mg 08/14/21 10:00 Naloxone Hcl 0.4 Mg/Ml Vial IV PUSH Q2M PRN Respiratory rate less than 10 Ondansetron HCl 4 mg 08/14/21 10:00 Ondansetron Inj 4 Mg/2 Ml Vial IV PUSH Q6H PRN Nausea And Vomiting Labs CBC & Chem 7: 08/15/21 04:23 Labs: Laboratory Results - last 24 hr 08/15/21 04:23 WBC 11.3 H RBC 3.73 L Hgb 11.9 L D Hct 35.0 L MCV 93.8 MCH 31.9 MCHC 34.0 RDW 12.2 Plt Count 165 MPV 11.3 H Immature Gran % (Auto) 0.4 Neut % (Auto) 78.5 H Lymph % (Auto) 13.4 L [place] % (Auto) 7.3 Eos % (Auto) 0.2 Baso % (Auto) 0.2 Lymph # (Auto) 1.51 [place] # (Auto) 0.8 H Eos # (Auto) 0.0 Baso # (Auto) 0.0 Abs Immat Gran (auto) 0.05 H Absolute Neuts (auto) 8.8 H Absolute Nucleated RBC 0.0 Nucleated RBC % 0.0
--- NOTE | 2021-08-15 07:44 | PM.DS ---
DS: Admitting Diagnosis Discharge Date 08/15/21 Admitting Diagnosis Enlarged uterus Heavy vaginal bleeding DS: Discharge Diagnosis Discharge Diagnosis (1) Menorrhagia: Code(s): N92.0 - Excessive and frequent menstruation with regular cycle Status: Acute DS: Summary Hospital Course Hospital Course: Admitted on the date of scheduled surgery. Please see Dr. Mildred Martin's note for details. Did well postop and was able to go home on POD#1. DS: Data Data Completed and Pending Pending studies at discharge: Pending at discharge 08/14/21 08:02 Surgical [PTH] Routine Labs on day of discharge: Labs from last 24 hours 08/15/21 04:23 WBC 11.3 H RBC 3.73 L Hgb 11.9 L D Hct 35.0 L MCV 93.8 MCH 31.9 MCHC 34.0 RDW 12.2 Plt Count 165 MPV 11.3 H Immature Gran % (Auto) 0.4 Neut % (Auto) 78.5 H Lymph % (Auto) 13.4 L [place] % (Auto) 7.3 Eos % (Auto) 0.2 Baso % (Auto) 0.2 Lymph # (Auto) 1.51 [place] # (Auto) 0.8 H Eos # (Auto) 0.0 Baso # (Auto) 0.0 Abs Immat Gran (auto) 0.05 H Absolute Neuts (auto) 8.8 H Absolute Nucleated RBC 0.0 Nucleated RBC % 0.0 Discharge Plan Discharge Patient Disposition: Home, Self-Care Discharge Instructions: Call or return if temperature above 100.4? F, increased abdominal pain, increased vaginal bleeding or any new problems. Stand Alone Forms: General Discharge Instructions Follow-up/Referrals: Anival Zhong MD [Physician] - Discharge Medications: New hydrocodone-acetaminophen 5-325 mg tablet 1 tablet PO Q4H PRN (Reason: pain) Qty: 30 RF: 0 Continued lisinopril [Zestril] 20 mg tablet 20 mg PO DAILY RF: 0 Xolair 150 mg recon soln 150 mg SUBCUT MONTHLY RF: 0 multivitamin Tablet 1 tablet PO DAILY RF: 0 cetirizine [Zyrtec] 10 mg Tablet 10 mg PO DAILY RF: 0 ascorbic acid (vitamin C) [Vitamin C] 500 mg Tablet 500 mg PO DAILY RF: 0 glucosamine sulfate 2KCl 1,000 mg Capsule 1,000 mg PO DAILY RF: 0 Discontinued norethindrone acetate [Aygestin] 5 mg tablet 5 mg PO BID RF: 0
[2021-08-15] MEDS: ENOXAPARIN 40 MG/0.4 ML SYRINGE SUB-Q (10:10)
[2021-08-15] MEDS: IBUPROFEN 600 MG TABLET PO (10:11)
[2021-08-15] MEDS: DOCUSATE SODIUM 100 MG CAPSULE PO (10:12)
[2021-08-15] MEDS: HYDROcodone/acetaminophen (*CRX) 10-325 MG TABLET 1 TAB PO (10:14)
--- NOTE | 2021-08-15 11:19 | WPDANESPN ---
Anes - Prog Note Post-Op Date/Time: 08/15/21 11:19 Cardiovascular status: normal Respiratory status: normal Airway patency: baseline Mental status: baseline Post-Op hydration status: normal Vital Signs: Last Vital Signs Temp 98.7 F 08/15/21 04:40 Pulse 76 08/15/21 04:40 Resp 18 08/15/21 04:40 BP 134/76 08/15/21 04:40 Pulse Ox 99 08/15/21 04:40 Pain Score (VAS): 3 I/O: Intake & Output 08/14/21 08/15/21 08/15/21 23:59 07:59 15:59 Intake Total 1400 200 Output Total 1200 300 Balance 200 -100 Laboratory Tests 08/15/21 04:23 08/15/21 04:23 WBC 11.3 H RBC 3.73 L Hgb 11.9 L D Hct 35.0 L MCV 93.8 MCH 31.9 MCHC 34.0 RDW 12.2 Plt Count 165 MPV 11.3 H Immature Gran % (Auto) 0.4 Neut % (Auto) 78.5 H Lymph % (Auto) 13.4 L [place] % (Auto) 7.3 Eos % (Auto) 0.2 Baso % (Auto) 0.2 Lymph # (Auto) 1.51 [place] # (Auto) 0.8 H Eos # (Auto) 0.0 Baso # (Auto) 0.0 Abs Immat Gran (auto) 0.05 H Absolute Neuts (auto) 8.8 H Absolute Nucleated RBC 0.0 Nucleated RBC % 0.0 Post-procedural complaints: none Patient Feedback: Patient satisfied with anesthetic care.
--- NOTE | 2021-08-15 14:51 | PC.NURSE ---
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 Dr. Beltran unable to transmit remotely. Pt agree and was to come and get RX. 1400 Pt 's has picked up Rx.
== END 2021-08-15 11:05 | disposition home or self-care (01) ==
LOC: ANHSURGERY 06:55 → ANHOB2 10:09
PROVIDERS: PCP Family Medicine; Visit Provider Obstetrics & Gynecology
PROC: (CPT 58571; principal; 2021-08-14 07:30)
DX: D25.1 Intramural leiomyoma of uterus (principal); N72 Inflammatory disease of cervix uteri; N80.0 Endometriosis of uterus; R10.2 Pelvic and perineal pain; N92.0 Excessive and frequent menstruation with regular cycle; E66.9 Obesity, unspecified; Z68.33 Body mass index [BMI] 33.0-33.9, adult
CPT/HCPCS: 58571; S2900; 36415; 85025; 86850; 86900; 86901; 88307; 93005; 99199; A9270; J0690; J1100; J1170; J1650; J1885; J2250; J2405; J2704; J2710; J3010; J7030; J7120; J7121

== ENCOUNTER 2022-06-11 13:26 | Outpatient (CLI) | payer OTHER, SELFPAY ==
--- NOTE | ~2022-06-11 | MR_ITS ---
EXAMINATION: MR brain IAC wo/w con DATE: 06/11/2022 14:39 INDICATION: Bilateral hearing loss. Lightheadedness. TECHNIQUE: Magnetic resonance imaging (MRI) of the brain, brainstem, and internal auditory canals was performed without and with 17 mL MultiHance intravenous contrast. COMPARISON: CT cervical spine 10/04/2019 FINDINGS: There is an empty sella. The Meckel caves are subjectively enlarged. There is no intracrani al hemorrhage, acute infarction, or abnormal intracranial mass lesion. The ventricles are normal in s ize. The orbits are normal. There is mild mucosal thickening in the paranasal sinuses. The internal a uditory canals and inner and middle ears are normal. The mastoid air cells are normal. IMPRESSION: 1. No etiology for the patient's symptoms. Reviewed, dictated and finalized at location A.
== END 2022-06-11 13:27 | disposition home or self-care (01) ==
PROVIDERS: PCP Family Medicine
DX: H91.93 Unspecified hearing loss, bilateral (principal)
CPT/HCPCS: 70553; A9577